=== PATIENT | male | born 1985 | race Caucasian/White ===

== ENCOUNTER 2016-09-28 21:48 | Emergency (ER) | payer BC ==
[2016-09-28 21:54] VITALS: BP 137/105
[2016-09-28] MEDS ORDERED: Sulfamethox/Trimethoprim DS 800/160* TAB PO ONE (22:36)
--- NOTE | 2016-09-28 23:30 | ED ---
Laceration/Wound HPI - HPI Summary HPI Summary: Patient arrives to ED with CC of laceration to the cartilage to the back of the L ear after wrestling with his brother. Patient states immediately his ear began to bleed, but did not experience any pain. Denies other injury, hitting head or LOC. Patient notes to a "clean" wound behind the ear. Denies hearing difficulty or changes in hearing. Ear feels warm to the touch with slight erythema. Denies fever, chills or diaphoresis. - History of Current Complaint Stated Complaint: EAR LAC Time Seen by Provider: 09/28/16 22:19 Hx Obtained From: Patient Mechanism of Injury: Sharp/Blunt Trauma Onset/Duration: Sudden Onset Aggravating: Nothing Alleviating: Compression Timing: Constant Onset Severity: Mild Current Severity: Mild Pain Intensity: 0 Pain Scale Used: 0-10 Numeric Associated Signs & Symptoms: Negative - Allergy/Home Medications Allergies/Adverse Reactions: Allergies Allergy/AdvReac Type Severity Reaction Status Date / Time No Known Allergies Allergy Verified 09/28/16 22:43 PMH/Surg Hx/FS Hx/Imm Hx Previously Healthy: Yes Endocrine/Hematology History: Denies: Hx Diabetes Cardiovascular History: Reports: Hx Angina, Hx Hypercholesterolemia, Hx Hypertension Denies: Hx Coronary Artery Disease, Hx Myocardial Infarction, Hx Valvular Heart Disease Respiratory History: Denies: Hx Asthma, Hx Chronic Obstructive Pulmonary Disease (COPD) Infectious Disease History: No Infectious Disease History: Denies: Traveled Outside the [place] in Last 30 Days - Social History Occupation: Employed Full-time Lives: With Family Alcohol Use: Rare Substance Use Type: Reports: None Hx Tobacco Use: Yes Smoking Status (MU): Heavy Every Day Tobacco Smoker Have You Smoked in the Last Year: Yes Review of Systems Constitutional: Negative Eyes: Negative ENT: Negative Cardiovascular: Negative Respiratory: Negative Musculoskeletal: Negative Positive: Other - laceration to backside of auricle Neurological: Negative Psychological: Normal All Other Systems Reviewed And Are Negative: Yes Physical Exam Triage Information Reviewed: Yes Vital Signs On Initial Exam: Initial Vitals Temp Pulse Resp BP Pulse Ox 98 F 91 18 137/105 97 09/28/16 21:51 09/28/16 21:51 09/28/16 21:51 09/28/16 21:51 09/28/16 21:51 Vital Signs Reviewed: Yes Appearance: Positive: Well-Appearing, No Pain Distress, Well-Nourished Skin: Positive: Warm, Skin Color Reflects Adequate Perfusion, Other - 3cm laceration to posterio side of auricle. Clean wound. Appropriates together wnl. Dr Cavazos consulted d/t cartilage involvement Eyes: Positive: Normal, EOMI, TORI ENT: Positive: Normal ENT inspection, TMs normal Neck: Positive: Supple, No Lymphadenopathy Respiratory/Lung Sounds: Positive: Clear to Auscultation, Breath Sounds Present Cardiovascular: Positive: Normal, RRR Musculoskeletal: Positive: Normal, Strength/ROM Intact Neurological: Positive: Normal, Sensory/Motor Intact, Alert, Oriented to Person Place, Time, Speech Normal Psychiatric: Positive: Normal Diagnostics - Vital Signs Vital Signs Temp Pulse Resp BP Pulse Ox 09/28/16 21:51 98 F 91 18 137/105 97 - Laboratory Lab Statement: Any lab studies that have been ordered have been reviewed, and results considered in the medical decision making process. Laceration Repair Course/Dx - Course Course Of Treatment: Laceration at 3cm on posterior auricle. Appropriating together. Adhesive glue used for closure. Patient tolerated well. Macy consulted. Agreed to use adhesive in place of suturing d/t location and cartilage involvment. Patient placed on bactrim empirically d/t location of wound/cartilage involvement. Return precautions given. - Differential Dx Differental Diagnoses: Avulsion, Dehiscence, Joint Infection, Laceration - Clinical Impression Provider Diagnoses: Laceration of auricle of left ear Discharge - Discharge Plan Condition: Stable Disposition: HOME Prescriptions: Sulfamethox/Trimethoprim DS* [Bactrim DS 800/160 TAB*] 1 tab PO BID #10 tab MDD 2 Patient Education Materials: Skin Adhesive Care (ED) Referrals: Franklin Bain MD [Primary Care Provider] - Additional Instructions: Ibuprofen as needed for discomfort May get the area wet beginning tomorrow. Be very gentle with the area for the next several days If you develop signs of infection such as fever, chills, sweats, drainage from the area, warmth or redness, please come back to ED. Bactrim has been prescribed to you for 5 days. Please take as directed.
== END 2016-09-28 22:53 | disposition home or self-care (01) ==
LOC: ED 21:48
DX: S01.312A Laceration without foreign body of left ear, initial encounter (principal); X58.XXXA Exposure to other specified factors, initial encounter; Y93.72 Activity, wrestling; E78.00 Pure hypercholesterolemia, unspecified; I10 Essential (primary) hypertension; Z72.0 Tobacco use
CPT/HCPCS: 12013; 99282; A9270-GY

== ENCOUNTER 2017-09-29 15:14 | Emergency (ER) | payer BC ==
[2017-09-29 15:26] VITALS: BP 167/102
[2017-09-29] MEDS ORDERED: Amoxicillin PO (*) 500 MG CAP PO ONE (15:48)
[2017-09-29] MEDS ORDERED: Naproxen TAB* 250 MG PO ONE (15:49)
--- NOTE | 2017-09-29 16:12 | UC ---
[facility] Dental HPI - HPI Summary HPI Summary: Patient comes in to urgent care today with chronic poor dentition patient reports has increased pain and swelling in his left lower jaw for the past 2 weeks now pain is intolerable - History of Current Complaint Chief Complaint: UCDentalProblem Stated Complaint: TOOTH ACHE Time Seen by Provider: 09/29/17 15:19 Hx Obtained From: Patient Onset/Duration: Lasting Weeks - 2, Worse Since Severity: Moderate - Worse for the past few days Pain Intensity: 4 Pain Scale Used: 0-10 Numeric Aggravating Factor(s): Cold Alleviating Factor(s): Nothing Related History: Previous Dental Care on Same Tooth - Allergies/Home Medications Allergies/Adverse Reactions: Allergies Allergy/AdvReac Type Severity Reaction Status Date / Time No Known Allergies Allergy Verified 09/29/17 15:26 PMH/Surg Hx/FS Hx/Imm Hx Previously Healthy: Yes - Surgical History Surgical History: None - Family History Known Family History: Positive: None - Social History Occupation: Employed Full-time Lives: Alone Alcohol Use: Rare Substance Use Type: None Smoking Status (MU): Former Smoker Have You Smoked in the Last Year: Yes Household Exposure Type: Cigarettes Review of Systems Constitutional: Negative Skin: Negative Eyes: Negative ENT: Dental Pain Respiratory: Negative Cardiovascular: Negative Gastrointestinal: Negative Genitourinary: Negative Motor: Negative Neurovascular: Negative Musculoskeletal: Negative Neurological: Negative Psychological: Negative Is Patient Immunocompromised?: No All Other Systems Reviewed And Are Negative: Yes Physical Exam Triage Information Reviewed: Yes Appearance: Well-Appearing, No Pain Distress, Well-Nourished Vital Signs: Initial Vital Signs Temp 97.2 F 09/29/17 15:22 Pulse 72 09/29/17 15:22 Resp 18 09/29/17 15:22 BP 167/102 09/29/17 15:22 Pulse Ox 98 09/29/17 15:22 Vital Signs Reviewed: Yes Eye Exam: Normal Eyes: Positive: Conjunctiva Clear ENT Exam: Normal ENT: Positive: Normal ENT inspection, Hearing grossly normal, TMs normal, Uvula midline. Negative: Nasal congestion, Tonsillar swelling, Tonsillar exudate, Trismus, Muffled voice, Hoarse voice Dental Exam: Other Dental: Positive: Percussion Tenderness @ - Multiple painful teeth, Gross Decay/ Caries @ - Multiple decayed teeth Neck exam: Normal Neck: Positive: Supple, Nontender Respiratory Exam: Normal Respiratory: Positive: Chest non-tender, Lungs clear, Normal breath sounds, No respiratory distress, No accessory muscle use Cardiovascular Exam: Normal Cardiovascular: Positive: RRR, No Murmur, Pulses Normal, Brisk Capillary Refill Musculoskeletal Exam: Normal Musculoskeletal: Positive: Strength Intact, ROM Intact, No Edema Neurological Exam: Normal Neurological: Positive: Alert, Muscle Tone Normal Psychological Exam: Normal Skin Exam: Normal Dental Complaint Course/Dx - Course Course Of Treatment: Is Start patient on amoxicillin and use naproxen 500 mg by mouth twice a day when necessary mild to moderate pain did prescribe Vicodin for moderate to severe pain when he's not at work will follow up with dentist as planned patient's also noted to be hypertensive without a history of hypertension encourage patient for follow-up in 1-2 weeks of primary care doctor for blood pressure recheck - Differential Dx/Diagnosis Provider Diagnoses: Diagnoses hypertension untreated and dental abscess left lower jaw Discharge - Discharge Plan Condition: Stable Disposition: HOME Prescriptions: Amoxicillin PO (*) [Amoxicillin 500 MG CAP*] 500 mg PO TID #30 cap Hydrocodone/Acetaminophen [Hydrocodone-Acetamin 5-325 mg] 1 each PO Q6H PRN #16 tablet MDD 4 PRN Reason: pain Naproxen [Naprosyn] 500 mg PO BID PRN #40 tablet PRN Reason: pain Patient Education Materials: Dental Abscess (ED), Hypertension (ED), Toothache (ED) Referrals: Franklin Bain MD [Primary Care Provider] - 1 Week
== END 2017-09-29 16:10 | disposition home or self-care (01) ==
LOC: UCEAST 15:14
DX: K04.7 Periapical abscess without sinus (principal); I10 Essential (primary) hypertension; Z87.891 Personal history of nicotine dependence
CPT/HCPCS: 99212; A9270-GY; G0463

== ENCOUNTER 2017-12-04 17:52 | Emergency (ER) | payer BC ==
[2017-12-04 18:27] VITALS: BP 134/64
--- NOTE | 2017-12-04 18:54 | UC ---
Throat Pain/Nasal Anand HPI - HPI Summary HPI Summary: Pt c/o sudden onset of sore throat X 2 days. - History of Current Complaint Chief Complaint: UCRespiratory Stated Complaint: SORE THROAT Time Seen by Provider: 12/04/17 18:40 Hx Obtained From: Patient Onset/Duration: Sudden Onset, Lasting Days, Still Present Severity: Mild Pain Intensity: 0 Cough: None Associated Signs & Symptoms: Positive: Dysphagia - Epiglottits Risk Factors Epiglottis Risk Factors: Sudden Onset - Allergies/Home Medications Allergies/Adverse Reactions: Allergies Allergy/AdvReac Type Severity Reaction Status Date / Time No Known Allergies Allergy Verified 09/29/17 15:26 Home Medications: Home Medications NK [No Home Medications Reported] 12/04/17 [History Confirmed 12/04/17] PMH/Surg Hx/FS Hx/Imm Hx Previously Healthy: Yes - Surgical History Surgical History: Yes Surgery Procedure, Year, and Place: pilonidal cyst x 2 - Family History Known Family History: Positive: None - Social History Occupation: Employed Full-time Lives: With Family Alcohol Use: Occasionally Substance Use Type: Excessive Caffeine Smoking Status (MU): Former Smoker Have You Smoked in the Last Year: Yes Household Exposure Type: Cigarettes Review of Systems Constitutional: Negative Skin: Negative Eyes: Negative ENT: Sore Throat Respiratory: Negative Cardiovascular: Negative Gastrointestinal: Negative Genitourinary: Negative Motor: Negative Neurovascular: Negative Musculoskeletal: Negative Neurological: Negative Psychological: Negative Is Patient Immunocompromised?: No All Other Systems Reviewed And Are Negative: Yes Physical Exam Triage Information Reviewed: Yes Appearance: Well-Appearing Vital Signs: Initial Vital Signs Temp 98.7 F 12/04/17 18:19 Pulse 72 12/04/17 18:19 Resp 18 12/04/17 18:19 BP 134/64 12/04/17 18:19 Pulse Ox 99 12/04/17 18:19 Vital Signs Reviewed: Yes Eye Exam: Normal ENT: Positive: Pharyngeal erythema, Tonsillar swelling Dental Exam: Other Dental: Positive: Other: - no teeth Neck exam: Normal Respiratory Exam: Normal Cardiovascular Exam: Normal Musculoskeletal Exam: Normal Neurological Exam: Normal Psychological Exam: Normal Skin Exam: Normal Diagnostics - Laboratory Diagnostic Studies Completed/Ordered: rapid strep: negative Throat Pain/Nasal Course/Dx - Differential Dx/Diagnosis Differential Diagnosis/HQI/PQRI: Pharyngitis, Tonsillitis Provider Diagnoses: pharyngitis Discharge - Sign-Out/Discharge Documenting (check all that apply): Discharge/Admit/Transfer - Discharge Plan Condition: Stable Disposition: HOME Patient Education Materials: Pharyngitis (ED) Referrals: Franklin Bain MD [Primary Care Provider] - If Needed - Billing Disposition and Condition Condition: STABLE Disposition: HOME
== END 2017-12-04 19:12 | disposition home or self-care (01) ==
LOC: UCCORT 17:52
DX: J02.9 Acute pharyngitis, unspecified (principal); Z87.891 Personal history of nicotine dependence
CPT/HCPCS: 87651; 99211; G0463

== ENCOUNTER 2018-02-23 14:48 | Emergency (ER) | payer BC ==
[2018-02-23 15:17] VITALS: BP 147/86
--- NOTE | 2018-02-23 15:58 | UC ---
[facility] General HPI - HPI Summary HPI Summary: Patient was laughing and got a sharp pain under the right ribs - History of Current Complaint Chief Complaint: UCAbdominalPain Stated Complaint: RIGHT SIDE PAIN Time Seen by Provider: 02/23/18 15:28 Hx Obtained From: Patient Onset/Duration: Sudden Onset, Lasting Hours Timing: Constant Onset Severity: Moderate Current Severity: Moderate Pain Intensity: 3 - Allergy/Home Medications Allergies/Adverse Reactions: Allergies Allergy/AdvReac Type Severity Reaction Status Date / Time No Known Allergies Allergy Verified 02/23/18 15:10 PMH/Surg Hx/FS Hx/Imm Hx Previously Healthy: Yes - Surgical History Surgical History: Yes Surgery Procedure, Year, and Place: pilonidal cyst x 2 - Family History Known Family History: Positive: None Negative: Cardiac Disease, Hypertension - Social History Alcohol Use: Rare Substance Use Type: Excessive Caffeine Smoking Status (MU): Former Smoker Have You Smoked in the Last Year: Yes When Did the Patient Quit Smoking/Using Tobacco: 02/24/17 Household Exposure Type: Cigarettes Review of Systems Constitutional: Negative Skin: Negative Eyes: Negative ENT: Negative Respiratory: Negative Cardiovascular: Negative Gastrointestinal: Negative Genitourinary: Negative Motor: Negative Neurovascular: Negative Musculoskeletal: Myalgia Neurological: Negative Psychological: Negative Is Patient Immunocompromised?: No All Other Systems Reviewed And Are Negative: Yes Physical Exam Triage Information Reviewed: Yes Appearance: Well-Appearing, Well-Nourished, Pain Distress Vital Signs: Initial Vital Signs Temp 99 F 02/23/18 15:10 Pulse 92 02/23/18 15:10 Resp 18 02/23/18 15:10 BP 147/86 02/23/18 15:10 Pulse Ox 99 02/23/18 15:10 Vital Signs Reviewed: Yes Eye Exam: Normal ENT Exam: Normal Dental Exam: Normal Neck exam: Normal Neck: Positive: Supple, Nontender, No Lymphadenopathy Respiratory Exam: Normal Respiratory: Positive: Chest non-tender, Lungs clear, Normal breath sounds Cardiovascular: Positive: RRR, No Murmur, Pulses Normal Abdominal Exam: Normal Abdomen Description: Positive: Nontender, No Organomegaly, Soft, CVA Tenderness (R) - neg, CVA Tenderness (L) - neg Musculoskeletal: Positive: Strength Intact, No Edema, ROM Limited @ - due to pain Neurological Exam: Normal Neurological: Positive: Alert Psychological Exam: Normal Skin Exam: Normal Course/Dx - Course Course Of Treatment: hx obtained, exam performed, meds reviewed, pain only with movement - Differential Dx - Multi-Symptom Provider Diagnoses: muscle strain of the right obliques Discharge - Sign-Out/Discharge Documenting (check all that apply): Patient Departure - Discharge Plan Condition: Stable Disposition: HOME Patient Education Materials: Muscle Strain (ED) Referrals: Franklin Bain MD [Primary Care Provider] - Additional Instructions: 1. take the medication as prescribed. 2.heat the area 3. stay in pain free Range of motion but stretch - Billing Disposition and Condition Condition: STABLE Disposition: Home
== END 2018-02-23 16:18 | disposition home or self-care (01) ==
LOC: UCCORT 14:48
DX: S39.011A Strain of muscle, fascia and tendon of abdomen, initial encounter (principal); X58.XXXA Exposure to other specified factors, initial encounter; Y93.9 Activity, unspecified; Y99.9 Unspecified external cause status
CPT/HCPCS: 99212; G0463